=== PATIENT | male | born 1955 | race American Indian/Alaskan Native ===

== ENCOUNTER 2019-01-04 10:53 | Inpatient (IN) | payer OTHER ==
--- NOTE | 2019-01-04 11:10 | Emergency Department Report ---
Blank Doc - Documentation Documentation: This is a 63-year-old male that presents with chest pain with SOB. Stated that something heavy is in chest. This initial assessment/diagnostic orders/clinical plan/treatment(s) is/are subject to change based on patient's health status, clinical progression and re- assessment by fellow clinical providers in the ED. Further treatment and workup at subsequent clinical providers discretion. Patient/guardians urged not to elope from the ED as their condition may be serious if not clinically assessed and managed. Initial orders include: 1- Patient sent to MAIN ED for further evaluation and treatment 2- labs 3- CXR 4- EKG
--- NOTE | 2019-01-04 11:31 | XRay Report ---
Single view chest: History: Chest pain. Findings: Lumbar AP trachea is midline. No consolidation, pneumothorax or pleural effusion. Impression: No acute cardiopulmonary findings.
[2019-01-04 11:34] LABS: Basophils % (Auto) 0.4 % (0.0-1.8); Eosinophils # (Auto) 0.1 K/mm3 (0.0-0.4); Eosinophils % (Auto) 1.8 % (0.0-4.3); Hematocrit 43.5 % (35.5-45.6); Hemoglobin 14.7 gm/dl (11.8-15.2); Lymphocytes # (Auto) 1.9 K/mm3 (1.2-5.4); Lymphocytes % (Auto) 26.7 % (13.4-35.0); Mean Corpuscular HGB Conc 34 % (32-34); Mean Corpuscular Volume 92 fl (84-94); Monocytes # (Auto) 0.8 K/mm3 (0.0-0.8); Monocytes % (Auto) 10.6 % (0.0-7.3); Platelet Count 218 K/mm3 (140-440); Red Blood Count 4.71 M/mm3 (3.65-5.03); Red Cell Distribution Width 14.2 % (13.2-15.2)
[2019-01-04 11:41] LABS: INR 0.94 (0.87-1.13)
[2019-01-04 11:42] LABS: Partial Thromboplastin Time 31.5 Sec. (24.2-36.6)
[2019-01-04 11:57] LABS: BUN/Creatinine Ratio 20; Blood Urea Nitrogen 16 mg/dL (9-20); Calcium 9.7 mg/dL (8.4-10.2); Hemolysis Index 21
[2019-01-04] MEDS ORDERED: BABY ASPIRIN PO ONE (13:14)
[2019-01-04] MEDS ORDERED: NITROSTAT SL ONE (13:15)
[2019-01-04] MEDS ORDERED: ZOFRAN IV ONE (13:16)
[2019-01-04] MEDS ORDERED: MORPHINE IV ONE (13:16)
--- NOTE | 2019-01-04 14:15 | Emergency Department Report ---
ED Chest Pain HPI - General Chief Complaint: Chest Pain Stated Complaint: CHEST DISCOMFORT Time Seen by Provider: 01/04/19 11:09 Source: patient Mode of arrival: Ambulatory Limitations: No Limitations - History of Present Illness Initial Comments: This is a 63-year-old male that presents with chest pain with SOB for 1 day. Stated that something heavy is in chest. Next someone is standing on his chest. He rates pain as severe in severity. He denies any nausea but did have diaphoresis at onset of his pain. He has a history of hypertension, diabetes, coronary artery disease. He said over a year ago he had a heart cath at that hospital. He had a balloon intervention. 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 His chest pain is also accompanied by headache. MD Complaint: chest pain Onset/Timin -: Gradual, hour(s) Onset: during rest Pain Location: substernal Severity: severe Severity scale (0 -10): 8 Quality: tightness Consistency: constant Improves With: nothing Worsens With: nothing re: nausea, diaphoresis, dyspnea Other Symptoms: denies: cough, fever Aspirin use within the Past 7 Days: (0) No - Related Data On Oral Contraceptives: No Previous Rx's Medication Instructions Recorded Last Taken Type Indomethacin 50 mg PO Q8H #30 capsule 02/05/14 Unknown Rx predniSONE [Deltasone] 50 mg PO QDAY #4 tab 02/05/14 Unknown Rx traMADol [Ultram 50 MG tab] 50 mg PO Q6HR PRN #30 tablet 02/05/14 Unknown Rx Allergies Allergy/AdvReac Type Severity Reaction Status Date / Time No Known Allergies Allergy Verified 01/04/19 10:55 Heart Score - HEART Score History: Highly suspicious EKG: Non-specific Age: 45-65 Risk factors: > 3 risk factors or hx of atherosclerotic disease Troponin: < normal limit HEART Score: 6 ED Review of Systems ROS: Stated complaint: CHEST DISCOMFORT Other details as noted in HPI Comment: All other systems reviewed and negative Cardiovascular: chest pain, palpitations, dyspnea on exertion Gastrointestinal: denies: abdominal pain, nausea, vomiting ED Past Medical Hx - Past Medical History Hx Diabetes: Yes (borderline) Additional medical history: anemia, gout - Social History Smoking Status: Never Smoker Substance Use Type: None - Medications Home Medications: Home Medications Medication Instructions Recorded Confirmed Last Taken Type Indomethacin 50 mg PO Q8H #30 capsule 02/05/14 Unknown Rx predniSONE [Deltasone] 50 mg PO QDAY #4 tab 02/05/14 Unknown Rx traMADol [Ultram 50 MG tab] 50 mg PO Q6HR PRN #30 tablet 02/05/14 Unknown Rx ED Physical Exam - General Limitations: No Limitations General appearance: alert, in no apparent distress - Head Head exam: Present: atraumatic, normocephalic - Eye Eye exam: Present: normal appearance, PERRL, EOMI Pupils: Present: normal accommodation - ENT ENT exam: Present: normal exam - Neck Neck exam: Present: normal inspection - Respiratory Respiratory exam: Present: normal lung sounds bilaterally - Cardiovascular Cardiovascular Exam: Present: regular rate, normal rhythm - GI/Abdominal GI/Abdominal exam: Present: soft, normal bowel sounds - Rectal Rectal exam: Present: deferred - Extremities Exam Extremities exam: Present: normal inspection - Back Exam Back exam: Present: normal inspection - Neurological Exam Neurological exam: Present: alert, oriented X3, CN II-XII intact - Psychiatric Psychiatric exam: Present: normal affect, normal mood - Skin Skin exam: Present: warm ED Course Vital Signs 01/04/19 01/04/19 01/04/19 11:09 12:25 12:28 Temperature 97.7 F 98.2 F Pulse Rate 103 H 87 89 Respiratory 18 24 21 Rate Blood Pressure 162/92 Blood Pressure 136/86 [Left] O2 Sat by Pulse 97 Oximetry 01/04/19 01/04/19 12:29 12:30 Temperature Pulse Rate 92 H Respiratory 21 22 Rate Blood Pressure 135/84 Blood Pressure [Left] O2 Sat by Pulse 97 93 Oximetry - Reevaluation(s) Reevaluation #1: 01/04/19 15:23 Mild improvement after morphine, aspirin, and nitroglycerin. KAREL score - Karel Score Aspirin use within the Past 7 Days: (0) No 3 or more CAD Risk Factors: (1) Yes 2 or more Angina events in past 24 hrs: (1) Yes Known CAD with more than 50% Stenosis: (1) Yes Elevated Cardiac Markers: (0) No ST Deviation Greater than 0.5mm: (0) No ED Medical Decision Making - Lab Data Result diagrams: 01/04/19 11:13 01/04/19 11:13 - Medical Decision Making This is a 63-year-old male that presents with chest pain with SOB for 1 day. Stated that something heavy is in chest. Next someone is standing on his chest. He rates pain as severe in severity. He denies any nausea but did have diaphoresis at onset of his pain. He has a history of hypertension, diabetes, coronary artery disease. He said over a year ago he had a heart cath at that hospital. He had a balloon intervention. 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 His chest pain is also accompanied by headache. Patient was given morphine, aspirin, nitroglycerin, which improved his pain. Patient will be admitted for observation under the hospitalist service. - Differential Diagnosis ACS, atypical chest pain, pulmonary embolism. Critical care attestation.: If time is entered above; I have spent that time in minutes in the direct care of this critically ill patient, excluding procedure time. ED Disposition Clinical Impression: Chest pain Qualifiers: Chest pain type: other chest pain Qualified Code(s): R07.89 - Other chest pain; R07.8 - Other chest pain Disposition: DC-09 OP ADMIT IP TO THIS HOSP Is pt being admited?: Yes Does the pt Need Aspirin: Yes Condition: Stable Instructions: Chest Pain (ED) Referrals: RONNIE GRAFF MD [Primary Care Provider] - 3-5 Days
[2019-01-04] MEDS ORDERED: ULTRAM PO PRN (20:41)
[2019-01-04] MEDS ORDERED: TYLENOL PO PRN (20:42)
[2019-01-04] MEDS ORDERED: ZOFRAN IV PRN (20:42)
[2019-01-04] MEDS ORDERED: SODIUM CHLORIDE FLUSH SYRINGE 10 ML IV PRN (20:42)
[2019-01-04] MEDS ORDERED: DILAUDID IV PRN (20:42)
[2019-01-04] MEDS ORDERED: PERCOCET 5/325 PO PRN (20:42)
[2019-01-04] MEDS ORDERED: NACL 0.9% 1000 ML 1,000 ML IV SCH (21:00)
[2019-01-04] MEDS: PEPCID IV SCH (22:52)
[2019-01-04] MEDS: SODIUM CHLORIDE FLUSH SYRINGE 10 ML IV SCH (22:53)
[2019-01-05 05:30] LABS: Basophils % (Auto) 0.3 % (0.0-1.8); Eosinophils # (Auto) 0.1 K/mm3 (0.0-0.4); Eosinophils % (Auto) 1.9 % (0.0-4.3); Hemoglobin 13.3 gm/dl (11.8-15.2); Lymphocytes # (Auto) 2.2 K/mm3 (1.2-5.4); Lymphocytes % (Auto) 27.6 % (13.4-35.0); Mean Corpuscular HGB Conc 34 % (32-34); Mean Corpuscular Volume 94 fl (84-94); Monocytes # (Auto) 0.9 K/mm3 (0.0-0.8); Monocytes % (Auto) 11.6 % (0.0-7.3); Platelet Count 192 K/mm3 (140-440); Red Blood Count 4.15 M/mm3 (3.65-5.03); Red Cell Distribution Width 14.3 % (13.2-15.2)
[2019-01-05 06:03] LABS: Alanine Aminotransferase 18 units/L (7-56); Albumin 3.8 g/dL (3.9-5); BUN/Creatinine Ratio 18; Blood Urea Nitrogen 22 mg/dL (9-20); Calcium 9.1 mg/dL (8.4-10.2); Hemolysis Index 21
--- NOTE | 2019-01-05 07:05 | Event Note ---
Date: 01/04/19 CP- R/o [place] protocol
[2019-01-05] MEDS ORDERED: HumaLOG SUB-Q SCH (07:30)
[2019-01-05] MEDS ORDERED: LEXISCAN IV ONE (07:40)
--- NOTE | 2019-01-05 09:37 | History and Physical Report ---
CHIEF COMPLAINT: Left-sided chest pain of 1 day duration. HISTORY OF PRESENT ILLNESS: A 63-year-old male comes in for left-sided chest pain of 1 day duration. Heaviness in the chest, nonradiating. No palpitations, no diaphoresis. The patient has history of hypertension. The patient had a heart catheterization 1 year ago. Had a balloon angioplasty, but no stent. The patient belongs to [facility]. PAST MEDICAL HISTORY: Significant for hypertension and diabetes and gout. PAST SURGICAL HISTORY: None. SOCIAL HISTORY: Does not smoke. FAMILY HISTORY: Hypertension. CURRENT MEDICATIONS: Indomethacin and prednisone. REVIEW OF SYSTEMS: Significant for left-sided chest pain, nonradiating, of 1 day duration, intermittent in nature. Otherwise, review of systems negative. PHYSICAL EXAMINATION: GENERAL: A young elderly male, cooperative during examination. VITAL SIGNS: Blood pressure 99/47, repeat was 132/56, temperature was 97, pulse is 94, respirations 16, sats are 94%. HEENT: Unremarkable. Pupils equal and reactive. NECK: Supple. No lymphadenopathy, no thyromegaly. LUNGS: Clear to auscultation and percussion. Good air entry. CARDIOVASCULAR: S1, S2 heard. No gallop, no murmur, no rub. Apical impulse in left fifth intercostal space and midclavicular line. ABDOMEN: Soft and benign. No hepatosplenomegaly. No guarding, no rigidity. Hernial orifices are normal. EXTREMITIES: Good pedal pulses. No pedal edema. CENTRAL NERVOUS SYSTEM: Alert and oriented x 4, nonfocal exam. SKIN: Normal. LABORATORY DATA: Significant for normal CBC. Sodium is slightly low at 136, glucose is 182, chloride is 97. Troponin is less than 0.010. EKG, normal sinus rhythm, no acute ST-T wave changes. ASSESSMENT AND PLAN: 1. Chest pain, rule out myocardial infarction, chest pain protocol. The patient to get stress test in the morning. Serial troponins. 2. Gout. Inactive at this point. Does not need Indocin or prednisone. 3. Diabetes, borderline. Check A1c. Coverage for the time being. 4. Deep venous thrombosis prophylaxis, Lovenox 40 mg subcutaneous daily. JOB# [id number] VSM/NTS MTDD
[2019-01-05] MEDS: SODIUM CHLORIDE FLUSH SYRINGE 10 ML IV SCH (10:36)
[2019-01-05] MEDS: PEPCID IV SCH (10:36)
--- NOTE | 2019-01-05 12:01 | Consultation ---
History of Present Illness Consult date: 01/05/19 Consult reason: chest pain History of present illness: This is a 63-year old man has a history of hypertension, diabetes who presented with chest pain, associated with dizziness and fatigue. Patient reports he has not been sleeping well over the last 6 months. He denies unusual shortness of breath, denies palpitations and has no lower extremity edema. Chest x-ray is normal. Cycled troponins are normal thus far and his ECG is benign, normal sinus rhythm. Review of records shows patient has previously undergone extensive cardiac workup. 10 months ago, he had a cardiac catheterization that reports no significant coronary artery disease. This was done at [facility]. Medications and Allergies Allergies Allergy/AdvReac Type Severity Reaction Status Date / Time No Known Allergies Allergy Verified 01/04/19 10:55 Home Medications Medication Instructions Recorded Confirmed Last Taken Type Indomethacin 50 mg PO Q8H #30 capsule 02/05/14 01/04/19 Unknown Rx Atorvastatin (Nf) [Lipitor (Nf)] 5 mg PO DAILY 01/04/19 01/04/19 01/04/19 History Ibuprofen [Motrin] 800 mg PO Q8HR PRN 01/04/19 01/04/19 Unknown History amLODIPine [Norvasc] 10 mg PO DAILY 01/04/19 01/04/19 01/04/19 History Active Meds: Active Medications Acetaminophen (Tylenol) 650 mg PO Q4H PRN PRN Reason: Pain MILD(1-3)/Fever >100.5/BHATIA Famotidine (Pepcid) 20 mg IV BID PENDING SALE TO [facility] Last Admin: 01/05/19 10:36 Dose: 20 mg Documented by: Hydromorphone HCl (Dilaudid) 0.5 mg IV Q3H PRN PRN Reason: Pain , Severe (7-10) Sodium Chloride (Nacl 0.9% 1000 Ml) 1,000 mls @ 75 mls/hr IV DIRECT SACHA Last Admin: 01/04/19 22:52 Dose: 75 mls/hr Documented by: Insulin Human Lispro (Humalog) 0 unit SUB-Q ACHS SACHA; Protocol Last Admin: 01/05/19 07:30 Dose: Not Given Documented by: Ondansetron HCl (Zofran) 4 mg IV Q8H PRN PRN Reason: Nausea And Vomiting Oxycodone/Acetaminophen (Percocet 5/325) 1 tab PO Q6H PRN PRN Reason: Pain, Moderate (4-6) Sodium Chloride (Sodium Chloride Flush Syringe 10 Ml) 10 ml IV BID SACHA Last Admin: 01/05/19 10:36 Dose: 10 ml Documented by: Sodium Chloride (Sodium Chloride Flush Syringe 10 Ml) 10 ml IV PRN PRN PRN Reason: LINE FLUSH Tramadol HCl (Ultram) 50 mg PO Q6H PRN PRN Reason: Pain Physical Examination Vital Signs Temp Pulse Resp BP 97.7 F 103 H 18 162/92 01/04/19 11:09 01/04/19 11:09 01/04/19 11:09 01/04/19 11:09 General appearance: no acute distress, obese HEENT: Positive: PERRL Neck: Positive: trachea midline Cardiac: Positive: Reg Rate and Rhythm Lungs: Positive: Decreased Breath Sounds Neuro: Positive: Grossly Intact Extremities: Absent: edema Results 01/05/19 05:04 01/05/19 05:04 Cardiac Enzymes 01/05/19 Range/Units 05:04 AST 21 (5-40) units/L CBC 01/05/19 Range/Units 05:04 WBC 7.8 (4.5-11.0) K/mm3 RBC 4.15 (3.65-5.03) M/mm3 Hgb 13.3 (11.8-15.2) gm/dl Hct 39.0 (35.5-45.6) % Plt Count 192 (140-440) K/mm3 Lymph # 2.2 (1.2-5.4) K/mm3 [facility] # 0.9 H (0.0-0.8) K/mm3 Eos # 0.1 (0.0-0.4) K/mm3 Baso # 0.0 (0.0-0.1) K/mm3 Comprehensive Metabolic Panel 01/05/19 Range/Units 05:04 Sodium 135 L (137-145) mmol/L Potassium 4.2 (3.6-5.0) mmol/L Chloride 97.8 L (98-107) mmol/L Carbon Dioxide 23 (22-30) mmol/L BUN 22 H (9-20) mg/dL Creatinine 1.2 (0.8-1.5) mg/dL Glucose 167 H (75-100) mg/dL Calcium 9.1 (8.4-10.2) mg/dL AST 21 (5-40) units/L ALT 18 (7-56) units/L Alkaline Phosphatase 82 (35-129) units/L Total Protein 7.0 (6.3-8.2) g/dL Albumin 3.8 L (3.9-5) g/dL Assessment and Plan Atypical chest pain Hypertension Diabetes Underlying sleep apnea 02/2018 [facility] reports no significant coronary artery disease. This was done at [facility]. No further cardiac workup indicated.
--- NOTE | 2019-01-05 15:13 | Discharge Summary ---
Providers - Providers Date of Admission: 01/04/19 15:21 Date of discharge: 01/05/19 Attending physician: JACLYN GIRARD 01/04/19 20:42 Consult to Physician [CONS] Routine Comment: Consulting Provider: ROBERTO MORRELL Physician Instructions: Reason For Exam: chest pain Primary care physician: [facility], Hospitalization Reason for admission: chest pain Condition: Stable Pertinent studies: Chest x-ray; no acute abnormality noted Procedures: Chest x-ray; no acute abnormality Hospital course: This is a 63-year old man has a history of hypertension, diabetes who presented with chest pain, associated with dizziness and fatigue. Patient reports he has not been sleeping well over the last 6 months. He denies unusual shortness of breath, denies palpitations and has no lower extremity edema. Chest x-ray is normal. Cycled troponins are normal thus far and his ECG is benign, normal sinus rhythm. Review of records shows patient has previously undergone extensive cardiac workup. 10 months ago, he had a cardiac catheterization that reports no significant coronary artery disease. This was done at [facility]. Patient was admitted symptomatically managed scheduled for stress test which was discontinued by cardiology and reporting that patient had recent cardiac cath done at an outside hospital 8 months ago followed to be nonobstructive irregularities and preserved left ventricular function. Cardiology did not recommend any further ischemia workup Patient's medications were optimized, counseling 0.7. Her treatment Today patient is comfortable in no new complaints vital signs stable Physical examination is unremarkable Cleared by cardiology for discharge and follow-up as needed Discharge Diagnosis; --Atypical chest pain; noncardiac, Probably secondary to gastroesophageal reflux disease Protonix, continue current cardiac medications --GERD ; probably the cause of chest pain, Protonix --Hypertension;well controlled continue current antihypertensives and when necessary medications --Type 2 diabetes mellitus; Accu-Chek sliding scale coverage and ADA diet Long-acting insulin as needed --Possible sleep apnea; CPAP at night Follow-up of 90 as outpatient --Moderate obesity; BMI 41.5 Exercise as tolerated and weight reduction when medically stable Patient is stable for discharge Disposition: TO HOME OR SELFCARE Time spent for discharge: 32 min Core Measure Documentation - Palliative Care Palliative Care/ Comfort Measures: Not Applicable - Core Measures Any of the following diagnoses?: none Exam - Constitutional Vitals: Temp Pulse Resp BP Pulse Ox 98.1 F 88 20 131/79 97 01/05/19 11:32 01/05/19 11:32 01/05/19 11:32 01/05/19 11:32 01/05/19 11:32 General appearance: Present: no acute distress, well-nourished, obese (morbidly obese) - EENT Eyes: Present: PERRL, EOM intact - Neck Neck: Present: supple, normal ROM - Respiratory Respiratory effort: normal Respiratory: bilateral: diminished, negative: rales, rhonchi, wheezing - Cardiovascular Rhythm: regular Heart Sounds: Present: S1 & S2 - Extremities Extremities: no ischemia, No edema - Abdominal General gastrointestinal: Present: soft, non-tender, non-distended, normal bowel sounds - Integumentary Integumentary: Present: clear, warm - Musculoskeletal Musculoskeletal: strength equal bilaterally - Psychiatric Psychiatric: appropriate mood/affect, cooperative - Neurologic Neurologic: moves all extremities Plan Activity: no restrictions Diet: other (cardiac diet) Additional Instructions: Advise weight reduction when medically stable. Advised to follow primary care physician in 3-4 days. 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 Outpatient Sleep study at pulmonary[[facility]] office, to rule out obstructive sleep apnea. Advised 3 days work excuse on 01/06/2019, 01/07/2019, 01/08/2019. May return to work on 01/09/2019 if stable Follow up with: RONNIE GRAFF MD [Primary Care Provider] - 3-5 Days Prescriptions: Indomethacin 50 mg PO Q8H PRN #30 capsule PRN Reason: Pain , Severe (7-10)
[2019-01-05 16:16] VITALS: BP 114/71
== END 2019-01-05 17:30 | disposition home or self-care (01) | DRG 313 ==
LOC: ED 10:53 → 4A 15:21
PROVIDERS: ADMIT Internal Medicine; ATTEND Internal Medicine
DX: R07.89 Other chest pain (principal); Z68.41 Body mass index [BMI] 40.0-44.9, adult; I10 Essential (primary) hypertension; E11.9 Type 2 diabetes mellitus without complications; I25.10 Atherosclerotic heart disease of native coronary artery without angina pectoris; E66.01 Morbid (severe) obesity due to excess calories; M10.9 Gout, unspecified; Z98.61 Coronary angioplasty status; Z82.49 Family history of ischemic heart disease and other diseases of the circulatory system; Z79.899 Other long term (current) drug therapy
CPT/HCPCS: 36415; 71046; 80048; 80053; 82962; 83036; 84484; 85025; 85610; 85730; 93005; 93010; 96374; 99285; G0378; J2270; J2405; J2785; J7030